=== PATIENT | male | born 1985 | race Caucasian/White ===

== ENCOUNTER 2017-04-26 11:40 | Outpatient (CLI) | payer MEDICAID ==
[2017-04-26 11:38] VITALS: BP 124/74
[~2017-04-26 11:40] MED LIST: APIX5TAB3 PO; CLE150C PO; CLON-527 PO; HYDR-569 PO; SERT25TA PO; TRAZ-146 PO
== END 2017-04-26 12:10 | disposition home or self-care (01) ==
LOC: ORTHO 11:40
PROVIDERS: ATTEND Nurse Practitioner Family
DX: S62.360D Nondisplaced fracture of neck of second metacarpal bone, right hand, subsequent encounter for fracture with routine healing (principal); F32.9 Major depressive disorder, single episode, unspecified; F41.9 Anxiety disorder, unspecified; I10 Essential (primary) hypertension; L03.113 Cellulitis of right upper limb; F17.210 Nicotine dependence, cigarettes, uncomplicated; F12.90 Cannabis use, unspecified, uncomplicated; Z72.89 Other problems related to lifestyle; Z88.0 Allergy status to penicillin; X58.XXXD Exposure to other specified factors, subsequent encounter
CPT/HCPCS: 73130

== ENCOUNTER 2017-12-04 22:18 | Emergency (ER) | payer MEDICAID ==
[~2017-12-04] VITALS: Ht 188 cm; Wt 113.6 kg
[~2017-12-04 22:18] MED LIST changes: -TRAZ-146 PO; +TRAZ-219 PO
[2017-12-04 22:19] VITALS: BP 157/107
[2017-12-04] MEDS ORDERED: normal saline 1000ML IV soln IV ONE (22:35)
[2017-12-04 23:10] LABS: ALANINE AMINOTRANSFERASE 26 U/L (12-78); ALBUMIN 4.7 G/DL (3.4-5.0); ALBUMIN/GLOBULIN RATIO 1.2 (1.1-1.5); ALKALINE PHOSPHATASE 82 IU/L (46-116); ANION GAP 21 (8-16); ASPARTATE AMINO TRANSFERASE 30 U/L (10-37); BILIRUBIN,TOTAL 0.5 MG/DL (0.1-1.0); BLOOD UREA NITROGEN 19 MG/DL (7-18); BUN/CREATININE RATIO 10.1 (5.4-32.0); CALCIUM 9.8 MG/DL (8.5-10.1); CHLORIDE 102 MMOL/L (99-107); CREATINE KINASE 400 U/L (39-308); CREATININE 1.89 MG/DL (0.60-1.10); GLUCOSE 146 MG/DL (70-104); POTASSIUM 3.2 MMOL/L (3.5-5.1); SODIUM 141 MMOL/L (135-145); TOTAL CARBON DIOXIDE 18.2 MMOL/L (24-32); TOTAL PROTEIN 8.6 G/DL (6.4-8.2); eGFR 42 ML/MIN
[2017-12-04 23:26] LABS: BASOPHILS # (AUTO) 0.1 X10'3 (0-0.2); BASOPHILS % (AUTO) 0.4 % (0-1); EOSINOPHILS # (AUTO) 0.3 X10'3 (0-0.9); EOSINOPHILS % (AUTO) 1.4 % (0-6); HEMATOCRIT 45.9 % (42.0-52.0); HEMOGLOBIN 15.7 g/dl (14.0-17.9); LYMPHOCYTES # (AUTO) 3.3 X10'3 (1.1-4.8); LYMPHOCYTES % (AUTO) 17.4 % (21-51); MEAN CORPUSCULAR HEMOGLOBIN 30.3 PG (27.0-31.0); MEAN CORPUSCULAR HGB CONC 34.3 % (33.0-36.5); MEAN CORPUSCULAR VOLUME 88.4 FL (78-98); MEAN PLATELET VOLUME 11.4 FL (7.4-10.4); MONOCYTES # (AUTO) 1.4 X10'3 (0-0.9); MONOCYTES % (AUTO) 7.7 % (2-12); NEUTROPHILS # (AUTO) 13.7 X10'3 (1.8-7.7); NEUTROPHILS % (AUTO) 73.1 % (42-75); PLATELET COUNT 269 X10'3 (140-440); RED BLOOD COUNT 5.19 X10'6 (4.70-6.10); RED CELL DISTRIBUTION WIDTH 13.3 % (11.5-14.5); WHITE BLOOD COUNT 18.8 X10'3 (4.5-11.0)
== END 2017-12-04 23:45 ==
LOC: ER 22:18
DX: S00.01XA Abrasion of scalp, initial encounter (principal); E86.0 Dehydration; F15.10 Other stimulant abuse, uncomplicated; K21.9 Gastro-esophageal reflux disease without esophagitis; F12.90 Cannabis use, unspecified, uncomplicated; Z87.11 Personal history of peptic ulcer disease; Z98.890 Other specified postprocedural states; Z90.89 Acquired absence of other organs; Z88.0 Allergy status to penicillin; Z79.899 Other long term (current) drug therapy; Y04.0XXA Assault by unarmed brawl or fight, initial encounter; Y93.89 Activity, other specified; Y92.89 Other specified places as the place of occurrence of the external cause; Y99.9 Unspecified external cause status
CPT/HCPCS: 36415; 80053; 82550; 85025; 96360; 99284; J7030

== ENCOUNTER 2021-06-15 15:47 | Emergency (ER) | payer MEDICAID ==
[~2021-06-15] VITALS: Ht 180.3 cm; Wt 98.8 kg
[~2021-06-15 15:47] MED LIST changes: +HYDR-4383 PO; -HYDR-569 PO; -TRAZ-219 PO; +TRAZ-256 PO
[2021-06-15 15:52] VITALS: BP 165/108
[2021-06-15] MEDS ORDERED: LORA-269 PO (16:07)
== END 2021-06-15 16:41 | disposition home or self-care (01) ==
LOC: ER 15:48
DX: F10.230 Alcohol dependence with withdrawal, uncomplicated (principal); K21.9 Gastro-esophageal reflux disease without esophagitis; F31.9 Bipolar disorder, unspecified; F12.10 Cannabis abuse, uncomplicated; Z88.0 Allergy status to penicillin; Y90.9 Presence of alcohol in blood, level not specified
CPT/HCPCS: 99283

== ENCOUNTER 2021-06-20 19:01 | Emergency (ER) | payer MEDICAID ==
[~2021-06-20] VITALS: Ht 180.3 cm; Wt 106.8 kg
[~2021-06-20 19:01] MED LIST changes: +LORA-269 PO
[2021-06-20 19:05] VITALS: BP 146/92
[2021-06-20] MEDS ORDERED: acetaminophen 325mg tablet PO ONE (19:55)
[2021-06-20] MEDS ORDERED: orphenadrine citrate 60mg/2ml inj. IM ONE (19:55)
[2021-06-20] MEDS ORDERED: CYCL-1 PO (20:32)
== END 2021-06-20 20:22 | disposition home or self-care (01) ==
LOC: ER 19:02
DX: M54.50 Low back pain, unspecified (principal); K21.9 Gastro-esophageal reflux disease without esophagitis; F31.9 Bipolar disorder, unspecified; F12.90 Cannabis use, unspecified, uncomplicated; Z87.11 Personal history of peptic ulcer disease; Z90.89 Acquired absence of other organs; Z98.890 Other specified postprocedural states; Z72.89 Other problems related to lifestyle; Z88.0 Allergy status to penicillin; Z79.2 Long term (current) use of antibiotics; Z79.899 Other long term (current) drug therapy
CPT/HCPCS: 96372; 99283; J2360

== ENCOUNTER 2021-11-24 21:55 | Emergency (ER) | payer MEDICAID ==
[~2021-11-24] VITALS: Ht 177.8 cm; Wt 92.9 kg
[~2021-11-24 21:55] MED LIST changes: +CYCL-1 PO
[2021-11-25] MEDS ORDERED: TETanus/Pertussis (Acell)/Diphther VAC/PF (Tdap-Adult) 0.5ml syringe IMVAC ONE (00:10)
[2021-11-25] MEDS ORDERED: SULF1TAB49 PO (00:13)
[2021-11-25] MEDS ORDERED: sulfamethoxazole/trimethoprim DS (800/160mg) tablet PO ONE (00:25)
[2021-11-25 00:46] VITALS: BP 134/77
[2021-11-25] MEDS: sulfamethoxazole/trimethoprim DS (800/160mg) tablet PO ONE (00:46)
[2021-11-25] MEDS: TETanus/Pertussis (Acell)/Diphther VAC/PF (Tdap-Adult) 0.5ml syringe IMVAC ONE (00:46)
--- NOTE | 2021-11-25 11:30 | NUR ---
PT CALLED STATING HE WAS SEEN LAST NIGHT BY DR CUADRA AND LOST HIS WRITTEN RX FOR BACTRIM DS. CONSULTED WITH AUGUSTA STEARNS NP AND PT'S RX WAS CALLED INTO [facility]
== END 2021-11-25 00:48 | disposition home or self-care (01) ==
LOC: ER 21:56
DX: S80.812A Abrasion, left lower leg, initial encounter (principal); L03.116 Cellulitis of left lower limb; M79.662 Pain in left lower leg; K21.9 Gastro-esophageal reflux disease without esophagitis; F31.9 Bipolar disorder, unspecified; F17.200 Nicotine dependence, unspecified, uncomplicated; F12.90 Cannabis use, unspecified, uncomplicated; F15.90 Other stimulant use, unspecified, uncomplicated; Z90.89 Acquired absence of other organs; Z87.11 Personal history of peptic ulcer disease; Z98.890 Other specified postprocedural states; Z88.0 Allergy status to penicillin; Z20.3 Contact with and (suspected) exposure to rabies; Z79.2 Long term (current) use of antibiotics; Z79.899 Other long term (current) drug therapy; W22.8XXA Striking against or struck by other objects, initial encounter; Y93.89 Activity, other specified; Y92.89 Other specified places as the place of occurrence of the external cause; Y99.8 Other external cause status
CPT/HCPCS: 90715; 99284; J7030

== ENCOUNTER 2022-03-24 14:06 | Emergency (ER) | payer MEDICAID | END 2022-03-24 16:04 | disposition left against medical advice (07) | LOC: ER 14:08 | DX: R69 Illness, unspecified (principal); Z53.21 Procedure and treatment not carried out due to patient leaving prior to being seen by health care provider ==

== ENCOUNTER 2022-04-02 01:39 | Emergency (ER) | payer MEDICAID ==
[~2022-04-02] VITALS: Ht 180.3 cm; Wt 90.5 kg
[2022-04-02 01:52] VITALS: BP 126/81
[2022-04-02 02:32] LABS: CLARITY,URINE CLEAR (Clear); COLOR,URINE YELLOW (Yellow); GLUCOSE, URINE NEGATIVE (Neg); KETONES,URINE NEGATIVE (Neg); LEUKOCYTE ESTERASE ,URINE NEGATIVE (Neg); NITRITES, URINE NEGATIVE (Neg); OCCULT BLOOD,URINE NEGATIVE (Neg); PH,URINE 6.5 (4.8-8.0); PROTEIN,URINE NEGATIVE (Neg); UROBILINOGEN,URINE 0.2 E.U/dL (0.2-1.0)
[2022-04-02 02:35] LABS: UA COLLECTION TYPE VOIDED
[2022-04-02 02:38] LABS: BASOPHILS # (AUTO) 0.1 X10'3 (0-0.2); EOSINOPHILS # (AUTO) 0.4 X10'3 (0-0.9); EOSINOPHILS % (AUTO) 3.7 % (0-6); HEMATOCRIT 39.4 % (42.0-52.0); HEMOGLOBIN 13.2 g/dl (14.0-17.9); LYMPHOCYTES # (AUTO) 3.4 X10'3 (1.1-4.8); LYMPHOCYTES % (AUTO) 32.2 % (21-51); MEAN CORPUSCULAR HGB CONC 33.6 g/dL (33.0-36.5); MEAN CORPUSCULAR VOLUME 89.3 FL (78-98); MONOCYTES # (AUTO) 0.8 X10'3 (0-0.9); MONOCYTES % (AUTO) 8.1 % (2-12); NEUTROPHILS # (AUTO) 5.7 X10'3 (1.8-7.7); PLATELET COUNT 198 X10'3 (140-440); RED BLOOD COUNT 4.42 X10'6 (4.70-6.10); RED CELL DISTRIBUTION WIDTH 14.2 % (11.5-14.5); WHITE BLOOD COUNT 10.4 X10'3 (4.5-11.0)
[2022-04-02 02:49] LABS: ALANINE AMINOTRANSFERASE 27 U/L (12-78); ALBUMIN 3.8 G/DL (3.4-5.0); ALBUMIN/GLOBULIN RATIO 1.1 (1.1-1.5); ALKALINE PHOSPHATASE 101 IU/L (46-116); ANION GAP 9 (8-16); ASPARTATE AMINO TRANSFERASE 30 U/L (10-37); BILIRUBIN,TOTAL 0.2 MG/DL (0.1-1.0); BLOOD UREA NITROGEN 9 MG/DL (7-18); BUN/CREATININE RATIO 9.8 (5.4-32.0); CALCIUM 9.1 MG/DL (8.5-10.1); CHLORIDE 104 MMOL/L (99-107); CREATININE 0.92 MG/DL (0.60-1.10); ETHANOL 0.033 GM/DL (0.0-0.010); GLUCOSE 99 MG/DL (70-104); POTASSIUM 3.7 MMOL/L (3.5-5.1); SODIUM 139 MMOL/L (135-145); TOTAL CARBON DIOXIDE 26.5 MMOL/L (24-32); TOTAL PROTEIN 7.2 G/DL (6.4-8.2); eGFR > 90 ML/MIN
[2022-04-02 02:58] LABS: URINE AMPHETAMINE SCREEN POSITIVE (Neg); URINE BARBITUATE SCREEN NEGATIVE (Neg); URINE BENZODIAZEPINES SCREEN NEGATIVE (Neg); URINE CANNABINOID SCREEN POSITIVE (Neg); URINE COCAINE SCREEN NEGATIVE (Neg); URINE METHADONE SCREEN NEGATIVE (Neg); URINE OPIATE SCREEN NEGATIVE (Neg); URINE PHENCYCLIDINE SCREEN NEGATIVE (Neg)
== END 2022-04-02 03:59 | disposition left against medical advice (07) ==
LOC: ER 01:39
DX: R45.851 Suicidal ideations (principal); Z20.822 Contact with and (suspected) exposure to COVID-19; Z53.21 Procedure and treatment not carried out due to patient leaving prior to being seen by health care provider
CPT/HCPCS: 36415; 80053; 80305; 80320; 81003; 85025; 87811